=== PATIENT | female | born 1980 | race Caucasian/White ===

== ENCOUNTER 2022-10-06 14:02 | Outpatient (CLI) | payer BC, SELFPAY ==
--- OUTSIDE RECORDS SUMMARY | 2022-10-06 14:42 | XMS_ITS ---
:1980 Author Care Team Providers Name Role Phone Alysa Crandall Primary Care Provider Unavailable Allergies Code Code System Name Reaction Severity Status Onset 20310408 RxNorm Keflex ? ? Active ? 180626 RxNorm Pertussis Vaccine,adsorbed ? ? Act garcia ? Medications Name Status Start Date Stop Date ? ? amoxicillin 875 mg-potassium clavulanate 125 mg tablet Active ? Not available fluoxetine 10 mg capsule Active ? Not faiza ilable methylprednisolone 4 mg tablets in a dose pack Active ? Not available mupirocin 2 % topical ointment Active ? N ot available Problems None recorded. Procedures None recorded. Results Lab Results None recorded. Past Encounters None recorded. Social History None recorded. Vaccine List None recorded. Plan of Care Reminders Provider Appointments None recorded. ? ? Lab None recorded. ? ? Referral None recorded. ? ? Procedures None recorded. ? ? Surgeries None recorded. ? ? Imaging None recorded. ? ? Vitals None recorded.
[2022-10-06 22:53] LABS: SARS PCR* Negative SARS-CoV-2 (Negative)
== END 2022-10-06 14:03 | disposition home or self-care (01) ==
LOC: FBOREF 14:02
PROVIDERS: PCP Family Medicine; Visit Provider Family Medicine
DX: Z20.822 Contact with and (suspected) exposure to COVID-19 (principal); R09.81 Nasal congestion
CPT/HCPCS: 87635

== ENCOUNTER 2023-01-23 09:45 | Outpatient (CLI) | payer BC, SELFPAY | END 2023-01-23 09:46 | disposition home or self-care (01) | PROVIDERS: PCP Family Medicine; Visit Provider Obstetrics & Gynecology | DX: R53.83 Other fatigue (principal); Z12.4 Encounter for screening for malignant neoplasm of cervix | CPT/HCPCS: 80053; 80061; 82306; 84443 ==

== ENCOUNTER 2023-04-14 11:35 | Outpatient (CLI) | payer BC, SELFPAY ==
--- NOTE | 2023-04-14 11:30 | CRLHL7_ITS ---
For Patients: As a result of the Century Cures Act, medical imaging exams and procedure reports are released immediately into your electronic medical record. You may view this report before your referring provider. If you have questions, please contact your health care provider. BILATERAL SCREENING MAMMOGRAM WITH COMPUTER-AIDED DETECTION AND TOMOSYNTHESIS TECHNIQUE: CC and MLO views were obtained. These mammographic images have been obtained using full-field digital technique. These mammographic images were interpreted with the benefit of computer-aided detection. Breast Tomosynthesis was used in this interpretation. COMPARISON FILM: 01/01/21, 12/12/19. FINDINGS: The breasts are heterogeneously dense, which may obscure small masses IMPRESSION: There is no radiographic evidence for malignancy. ASSESSMENT: BI-RADS Category 1: Negative RECOMMENDATION: Routine screening mammogram in 1 year. A lay language report of this examination will be provided to the patient. Vince Tagn M.D. Diagnostic Radiologist [email or web address] CHARLES/Dictated by: Vince Tang MD @ 04/15/2023 12:40:00 PM (Electronically Signed)
== END 2023-04-14 11:36 | disposition home or self-care (01) ==
LOC: MAMMO 11:36
PROVIDERS: PCP Family Medicine; Visit Provider Obstetrics & Gynecology
DX: Z12.31 Encounter for screening mammogram for malignant neoplasm of breast (principal); R92.2 Inconclusive mammogram
CPT/HCPCS: 77063; 77067

== ENCOUNTER 2024-06-14 07:23 | Outpatient (CLI) | payer BC, SELFPAY ==
--- NOTE | 2024-06-14 08:42 | W.ANESCHARGE ---
Anesthesia Charges Start Date/Time Anesthesia Start Date: 06/14/24 Anesthesia Start Time: 08:12 Stop Date/Time Anesthesia Stop Date: 06/14/24 Anesthesia Stop Time: 08:40
--- NOTE | 2024-06-14 10:24 | W.ANESCHARGE ---
Anesthesia Charges Start Date/Time Anesthesia Start Date: 06/14/24 Anesthesia Start Time: 08:12 Stop Date/Time Anesthesia Stop Date: 06/14/24 Anesthesia Stop Time: 08:40
== END 2024-06-14 07:24 | disposition home or self-care (01) ==
LOC: OP CLINIC 07:23
PROVIDERS: PCP Family Medicine; Visit Provider Surgery
DX: Z12.11 Encounter for screening for malignant neoplasm of colon (principal); Z83.719 Family history of colon polyps, unspecified
CPT/HCPCS: 00811; 00812; 45378; J2704

== ENCOUNTER 2025-01-03 16:00 | Outpatient (RCR) | payer BC, SELFPAY | END 2025-04-10 10:45 | disposition home or self-care (01) | PROVIDERS: PCP Family Medicine; Visit Provider Family Medicine | DX: M54.2 Cervicalgia (principal); M54.50 Low back pain, unspecified; G89.29 Other chronic pain; Z51.89 Encounter for other specified aftercare | CPT/HCPCS: 97110; 97140; 97161; 97164 ==

== ENCOUNTER 2025-01-05 08:40 | Outpatient (CLI) | payer BC, SELFPAY | END 2025-01-05 08:41 | disposition home or self-care (01) | LOC: NFLDREF 01-06 08:38 | PROVIDERS: PCP Family Medicine; Referring Provider Family Medicine; Visit Provider Obstetrics & Gynecology | DX: N95.1 Menopausal and female climacteric states (principal); N93.9 Abnormal uterine and vaginal bleeding, unspecified; R53.83 Other fatigue; Z86.32 Personal history of gestational diabetes | CPT/HCPCS: 80053; 80061; 82306; 84443 ==

== ENCOUNTER 2025-01-20 16:04 | Outpatient (CLI) | payer BC, SELFPAY | END 2025-01-20 16:05 | disposition home or self-care (01) | LOC: NFLDREF 01-22 02:06 | PROVIDERS: PCP Family Medicine; Referring Provider Family Medicine; Visit Provider Obstetrics & Gynecology | DX: R74.01 Elevation of levels of liver transaminase levels (principal) | CPT/HCPCS: 86704; 86706; 86708; 86803; 87340 ==

== ENCOUNTER 2025-05-08 10:30 | Outpatient (CLI) | payer BC, SELFPAY ==
--- NOTE | 2025-05-08 10:45 | CRLHL7_ITS ---
For Patients: As a result of the Century Cures Act, medical imaging exams and procedure reports are released immediately into your electronic medical record. You may view this report before your referring provider. If you have questions, please contact your health care provider. INDICATION: Elevated liver enzymes COMPARISON: none TECHNIQUE: Real time ko scale imaging and color Doppler analysis was performed of the right upper quadrant. FINDINGS: The patient`s liver is of normal size and has uniform echogenicity. There is a normal appearance of the hepatic IVC and proximal abdominal aorta. There is no evidence of ascites. The gallbladder is of normal size and there is no evidence of intraluminal stones or sludge. The gallbladder wall measures 2.5 mm in thickness. The common bile duct is of normal size and measures 3.7 mm in diameter at the level of the luana hepatis. The pancreas appears normal. There is no evidence of a stone or hydronephrosis within the right kidney. The right kidney measures 11.7 cm in length. IMPRESSION: Normal right upper quadrant ultrasound. Dictated by Vince Tang MD @ 05/08/2025 11:25:04 AM (Electronically Signed)
== END 2025-05-08 10:31 | disposition home or self-care (01) ==
LOC: US 10:31
PROVIDERS: PCP Family Medicine; Visit Provider Internal Medicine Gastroenterology
DX: R74.8 Abnormal levels of other serum enzymes (principal); R03.0 Elevated blood-pressure reading, without diagnosis of hypertension
CPT/HCPCS: 76705

== ENCOUNTER 2025-05-08 10:32 | Outpatient (CLI) | payer BC, SELFPAY ==
--- NOTE | 2025-05-08 11:30 | CRLHL7_ITS ---
For Patients: As a result of the Century Cures Act, medical imaging exams and procedure reports are released immediately into your electronic medical record. You may view this report before your referring provider. If you have questions, please contact your health care provider. BILATERAL DIGITAL SCREENING MAMMOGRAM WITH COMPUTER-AIDED DETECTION AND TOMOSYNTHESIS CLINICAL HISTORY: : Routine screening exam. COMPARISON: 04/14/2023, 01/01/2021, 12/12/2019 TECHNIQUE: Digital mammogram in CC and MLO projections including computer-aided detection (CAD). Tomosynthesis was used in this interpretation. BREAST COMPOSITION: There are scattered areas of fibroglandular density. FINDINGS: RIGHT Breast: No suspicious findings LEFT Breast: Focal nodular density within the upper-outer quadrant, possible cyst, 3 cm from the nipple. IMPRESSION: LEFT breast asymmetry/mass. RECOMMENDATIONS: Additional mammographic views of the LEFT breast including 3D spot-compression CC/MLO. LEFT breast ultrasound may also be required. [facility] will contact the patient. A lay language report of this examination will be provided to the patient. BI-RADS Category 0: Incomplete: Need Additional Imaging Evaluation Dictated by Vince Tang MD @ 05/09/2025 10:02:57 AM Dictated by: Vince Tang MD @ 05/09/2025 10:03:07 (Electronically Signed)
== END 2025-05-08 10:33 | disposition home or self-care (01) ==
LOC: MAMMO 10:32
PROVIDERS: PCP Family Medicine; Visit Provider Family Medicine
DX: Z12.31 Encounter for screening mammogram for malignant neoplasm of breast (principal); N63.20 Unspecified lump in the left breast, unspecified quadrant
CPT/HCPCS: 77063; 77067

== ENCOUNTER 2025-05-30 09:30 | Outpatient (CLI) | payer BC, SELFPAY ==
--- NOTE | 2025-05-30 09:45 | CRLHL7_ITS ---
For Patients: As a result of the Cures Act, medical imaging exams and procedure reports are released immediately into your electronic medical record. You may view this report before your referring provider. If you have questions, please contact your health care provider. DIGITAL DIAGNOSTIC LEFT MAMMOGRAM WITH TOMOSYNTHESIS LEFT BREAST ULTRASOUND INDICATION: Follow-up a LEFT breast asymmetry upper outer quadrant described on recent mammogram 05/08/2025. MAMMOGRAM TECHNIQUE: Spot-compression view of the LEFT breast in the CC and MLO projection. Digital breast tomosynthesis utilized interpretation. COMPARISON: 05/08/2025. 04/14/2023. FINDINGS: Breast Composition: There are scattered areas of fibroglandular density. Within the upper outer quadrant of the LEFT breast at approximately the 1 o`clock position 3 cm from the nipple are two adjacent nodules which persist. Ultrasound is recommended for further evaluation. IMPRESSION: Persistent nodules upper outer LEFT breast at the 1 o`clock position 3 cm from the nipple for which ultrasound is recommended. ULTRASOUND TECHNIQUE: Directed LEFT breast ultrasound performed with this radiologist present. FINDINGS: At the 1 o`clock position 3 cm from the nipple are two adjacent solid nodules within it with an appearance most compatible with fibroadenomas. One of the lesions measures 9 x 8 x 9 mm and the other 10 x 5 x 7 mm. These are likely two adjacent fibroadenomas. By history, the patient had a prior LEFT breast surgery for removal of a large fibroadenoma at age 19 and apparent more recent history of excisional biopsy of an additional fibroadenoma. These findings were discussed in detail in detail with the patient. IMPRESSION: Two solid nodules upper outer LEFT breast for which ultrasound-guided biopsy and clip placement are recommended. BI-RADS Category 4: Suspicious A lay language report of this examination will be provided to the patient. Dictated by: Vadim Andrews MD @05/30/2025 11:55:59 AM jj/Dictated by: Vadim Andrews MD @ 05/30/2025 11:56:00 AM (Electronically Signed)
--- NOTE | 2025-05-30 10:15 | CRLHL7_ITS ---
For Patients: As a result of the Cures Act, medical imaging exams and procedure reports are released immediately into your electronic medical record. You may view this report before your referring provider. If you have questions, please contact your health care provider. SEE DIGITAL DIAGNOSTIC LEFT MAMMOGRAM PERFORMED SAME DAY CRL:[email or web address] higginbotham/Dictated by: Vadim Andrews MD @ 05/30/2025 11:56:00 AM (Electronically Signed)
== END 2025-05-30 09:31 | disposition home or self-care (01) ==
LOC: MAMMO 09:31
PROVIDERS: PCP Family Medicine; Visit Provider Obstetrics & Gynecology
DX: N63.20 Unspecified lump in the left breast, unspecified quadrant (principal); R92.8 Other abnormal and inconclusive findings on diagnostic imaging of breast
CPT/HCPCS: 76642; 77065; G0279

== ENCOUNTER 2025-06-12 10:39 | Outpatient (CLI) | payer BC, SELFPAY ==
--- NOTE | 2025-06-12 10:48 | CRLHL7_ITS ---
For Patients: As a result of the Century Cures Act, medical imaging exams and procedure reports are released immediately into your electronic medical record. You may view this report before your referring provider. If you have questions, please contact your health care provider. ULTRASOUND-GUIDED CORE NEEDLE BREAST BIOPSY OF TWO SITES AND POST-BIOPSY DIGITAL MAMMOGRAM FOR BIOPSY MARKER PLACEMENT CLINICAL HISTORY: Indeterminate nodules. COMPARISON STUDIES: 05/30/2025, 05/08/2025. TECHNIQUE: Real-time ultrasound with image documentation was used for targeting the breast lesions. A core needle biopsy system was used to obtain core tissue samples with a 16-gauge needle. Post-biopsy CC and ML digital mammograms were obtained to document position of the biopsy marker. CONSENT and TIME OUT: The procedure, risks, and alternatives were explained to the patient and a consent was signed. [place] Protocol was followed including pre-procedure verification that relevant information/documentation was available, reviewed and properly matched to the patient; consent accurate and complete; and equipment and supplies available. Time Out was conducted just prior to starting procedure to verify the four required elements: patient identity, correct side/site marked (if applicable), procedure, relevant images/results properly labeled and displayed (if applicable). PROCEDURE: All biopsies were performed in a similar manner. The patient was positioned supine on the ultrasound table. The breast was prepped with ChloraPrep. 5 cc of 1% lidocaine was injected for local anesthesia. Core samples were obtained. A sterile metal biopsy clip was placed percutaneously to melania the lesion position within the breast. The specimens were placed in 10% formalin and sent to the Pathology Department. Pressure was held on the biopsy site until all bleeding subsided. The skin incision was closed with Steri-Strips. An ice pack was positioned over the biopsy site. The patient tolerated the procedure well. Post-biopsy instructions were reviewed with the patient, and a written copy was given to her. SITE A: LATERALITY: LEFT breast. LESION: 9 x 8 x 9 millimeters at 1 o`clock 3 cm from the nipple. SUSPICION: Low. NUMBER OF SAMPLES: 5. BIOPSY CLIP SHAPE: Oval. PROXIMITY OF CLIP TO TARGET: Within the lesion. SITE B: LATERALITY: LEFT breast. LESION: 11 x 5 x 7 millimeters at 1 o`clock 3 cm from the nipple. SUSPICION: Low. NUMBER OF SAMPLES: 5. BIOPSY CLIP SHAPE: HydroMARK. PROXIMITY OF CLIP TO TARGET: Within the lesion. DISTANCE BETWEEN: Sites A and B: Less than 1 cm. IMPRESSION: Ultrasound-guided breast biopsy of two sites. When the pathology report is available, an addendum to this report will be made. ACR not applicable Dictated by Vince Tang MD @ 06/12/2025 11:37:46 AM jj/Dictated by: Vince Tang MD @ 06/12/2025 11:37:00 AM (Electronically Signed)
--- NOTE | 2025-06-12 11:00 | CRLHL7_ITS ---
For Patients: As a result of the Cures Act, medical imaging exams and procedure reports are released immediately into your electronic medical record. You may view this report before your referring provider. If you have questions, please contact your health care provider. SEE ULTRASOUND-GUIDED TWO-SITE LEFT BREAST BIOPSY PERFORMED SAME DAY CRL:anahy higginbotham/Dictated by: Vince Tang MD @ 06/12/2025 11:35:00 AM (Electronically Signed)
== END 2025-06-12 10:40 | disposition home or self-care (01) ==
LOC: US 10:39
PROVIDERS: PCP Family Medicine; Visit Provider Obstetrics & Gynecology
DX: N63.20 Unspecified lump in the left breast, unspecified quadrant (principal); R92.8 Other abnormal and inconclusive findings on diagnostic imaging of breast
CPT/HCPCS: 19083; 77065; A4648; A4649